=== PATIENT | male | born 1995 | race Asian ===

== ENCOUNTER 2021-01-26 21:07 | Inpatient (IN) | payer BC, OTHER ==
[~2021-01-26] VITALS: Ht 175.3 cm; Wt 76.3 kg
[2021-01-26 23:17] LABS: HEMOGLOBIN 13.4 gm/dl (14.0-17.5); RED BLOOD COUNT 4.88 M/UL (4.20-5.50); WHITE BLOOD COUNT 5.4 K/UL (4.5-11.0)
[2021-01-26 23:47] LABS: BUN/CREATININE RATIO 23 (0-10)
[2021-01-28 05:13] LABS: BUN/CREATININE RATIO 35 (0-10)
[2021-01-28 07:10] LABS: HIV SCREEN 4TH GENERATION WRFX Non Reactive (Non Reactive)
[2021-01-28 09:10] LABS: HBSAG SCREEN Negative (Negative); HEP A AB, IGM Negative (Negative); HEP B CORE AB, IGM Negative (Negative); HEP C VIRUS AB <0.1 (0.0-0.9); RPR Non Reactive (Non Reactive)
[2021-01-28 10:10] LABS: RHEUMATOID ARTHRITIS FACTOR <10.0 IU/mL (0.0-13.9)
[2021-01-28 10:10] LABS: COMPLEMENT C3, SERUM 59 mg/dL (82-167); COMPLEMENT C4, SERUM 11 mg/dL (12-38)
[2021-01-28 11:10] LABS: CREATININE, URINE 839.7 mg/dL (Not Estab.)
[2021-01-28 14:35] LABS: URINE TOTAL PROTEIN 1620 mg/dl
[2021-01-29 08:04] LABS: HEMOGLOBIN 13.1 gm/dl (14.0-17.5); RED BLOOD COUNT 4.95 M/UL (4.20-5.50); WHITE BLOOD COUNT 4.3 K/UL (4.5-11.0)
[2021-01-29 08:28] LABS: BUN/CREATININE RATIO 34 (0-10)
[2021-01-29] MEDS ORDERED: FUROSEMIDE40 MG PO (11:17)
[2021-01-29] MEDS ORDERED: LISINOPRIL5 MG PO (11:17)
[2021-01-29 16:10] LABS: A/G RATIO 0.3 (0.7-1.7); ALBUMIN 0.7 g/dL (2.9-4.4); ALPHA-1-GLOBULIN 0.2 g/dL (0.0-0.4); ALPHA-2-GLOBULIN 1.5 g/dL (0.4-1.0); BETA GLOBULIN 0.6 g/dL (0.7-1.3); GAMMA GLOBULIN 0.3 g/dL (0.4-1.8); GLOBULIN, TOTAL 2.6 g/dL (2.2-3.9); IMMUNOGLOBULIN A, QN, SERUM 389 mg/dL (90-386); IMMUNOGLOBULIN G, QN, SERUM 342 mg/dL (603-1613); IMMUNOGLOBULIN M, QN, SERUM 38 mg/dL (20-172); M-SPIKE Not Observed g/dL (Not Observed); PROTEIN, TOTAL, SERUM 3.3 g/dL (6.0-8.5)
[2021-01-30 04:11] LABS: LDL CHOL. (DIRECT) 246 mg/dL (0-99)
[2021-01-30 07:11] LABS: ANTISTREPTOLYSIN O AB <20.0 IU/mL (0.0-200.0)
[2021-01-30 16:11] LABS: ANTIMYELOPEROXIDASE (MPO) ABS <9.0 U/mL (0.0-9.0); ANTIPROTEINASE 3 (PR-3) ABS <3.5 U/mL (0.0-3.5); ATYPICAL PANCA <1:20 titer (Neg:<1:20); CYTOPLASMIC (C-ANCA) <1:20 titer (Neg:<1:20); PERINUCLEAR (P-ANCA) <1:20 titer (Neg:<1:20)
[2021-01-31 11:15] LABS: ANTIGLOMERULAR BM AB 2 units (0-20)
[2021-01-31 16:14] LABS: M-SPIKE, % Not Observed % (Not Observed); PROTEIN,TOTAL,URINE 1763.3 mg/dL (Not Estab.)
[2021-02-01 13:14] LABS: DSDNA CRITHIDIA LUCILIAE IFA Positive (Negative)
== END 2021-01-29 15:46 | disposition home or self-care (01) | DRG 699 ==
LOC: ER1 21:07 → M/S 01-27 02:19 → CDU 01-27 02:19 → M/S 01-27 03:38
PROVIDERS: Family Medicine; Internal Medicine; Internal Medicine Nephrology; ADMIT Internal Medicine
PROC: B24BZZ4 Ultrasonography of Heart with Aorta, Transesophageal (ICD-10-PCS; 2021-01-27)
PROC: 0TB03ZX Excision of Right Kidney, Percutaneous Approach, Diagnostic (ICD-10-PCS; principal; 2021-01-29)
DX: N04.9 Nephrotic syndrome with unspecified morphologic changes (principal); R18.8 Other ascites; J90 Pleural effusion, not elsewhere classified; Z20.822 Contact with and (suspected) exposure to COVID-19; E78.00 Pure hypercholesterolemia, unspecified; N17.9 Acute kidney failure, unspecified; E88.09 Other disorders of plasma-protein metabolism, not elsewhere classified; N12 Tubulo-interstitial nephritis, not specified as acute or chronic
CPT/HCPCS: ECHO; 36415; 71046; 77012; 80048; 80053; 80061; 80074; 80307; 81001; 82043; 82550; 82553; 82570; 82784; 83036; 83520; 83690; 83698; 83874; 83880; 84155; 84156; 84165; 84166; 84439; 84443; 84484; 85025; 85379; 85610; 86038; 86060; 86160; 86162; 86255; 86256; 86334; 86335; 86431; 86592; 87040; 87086; 87389; 88305; 88313; 88346; 88348; 93005; 93306; 96374; 99285; J0696; J1644; J1650; J1940; P9047; U0002

== ENCOUNTER → 2021-02-01 | Outpatient (CLI) | payer BC ==
[~2021-02-01] MED LIST: FUROSEMIDE40 MG PO; LISINOPRIL5 MG PO
[2021-02-01 20:32] LABS: BUN/CREATININE RATIO 42 (0-10)
== END ==
LOC: LAB 17:38
PROVIDERS: Internal Medicine Nephrology
DX: M32.14 Glomerular disease in systemic lupus erythematosus (principal)
CPT/HCPCS: 36415; 80053

== ENCOUNTER → 2021-02-08 | Outpatient (CLI) | payer BC, OTHER ==
[2021-02-08 17:05] LABS: BUN/CREATININE RATIO 39 (0-10)
== END ==
LOC: LAB 15:21
PROVIDERS: Internal Medicine Nephrology
DX: R80.9 Proteinuria, unspecified (principal)
CPT/HCPCS: 80069; 82570; 84156

== ENCOUNTER → 2021-03-03 | Outpatient (CLI) | payer BC, OTHER ==
[2021-03-03 17:38] LABS: BUN/CREATININE RATIO 34 (0-10)
[2021-03-06 14:12] LABS: ANTI-DSDNA ANTIBODIES 4 IU/mL (0-9)
[2021-03-06 15:12] LABS: COMPLEMENT C3, SERUM 120 mg/dL (82-167); COMPLEMENT C4, SERUM 12 mg/dL (12-38)
== END ==
LOC: LAB 16:45
PROVIDERS: Internal Medicine Nephrology
DX: M32.14 Glomerular disease in systemic lupus erythematosus (principal)
CPT/HCPCS: 80053; 81001; 82570; 84156; 86038; 86160; 86225

== ENCOUNTER → 2021-03-28 | Outpatient (CLI) | payer BC, OTHER ==
[2021-03-28 12:25] LABS: HEMOGLOBIN 15.3 gm/dl (14.0-17.5); RED BLOOD COUNT 5.08 M/UL (4.20-5.50); WHITE BLOOD COUNT 14.9 K/UL (4.5-11.0)
[2021-03-28 12:51] LABS: BUN/CREATININE RATIO 29 (0-10)
[2021-03-29 08:14] LABS: COMPLEMENT C3, SERUM 137 mg/dL (82-167); COMPLEMENT C4, SERUM 12 mg/dL (12-38)
[2021-03-29 10:14] LABS: CREATININE, URINE 158.7 mg/dL (Not Estab.)
[2021-03-29 15:14] LABS: ANTI-DSDNA ANTIBODIES 5 IU/mL (0-9)
== END ==
LOC: LAB 11:03
PROVIDERS: Internal Medicine Nephrology
DX: M32.14 Glomerular disease in systemic lupus erythematosus (principal)
CPT/HCPCS: 36415; 80053; 82043; 82570; 84156; 85027; 86038; 86160; 86225

== ENCOUNTER → 2021-04-11 | Outpatient (CLI) | payer BC, OTHER | LOC: LAB 15:21 | DX: M32.14 Glomerular disease in systemic lupus erythematosus (principal) | CPT/HCPCS: 81001; 82570; 84156 ==

== ENCOUNTER → 2021-04-13 | Outpatient (CLI) | payer BC, OTHER ==
[2021-04-13 18:40] LABS: URINE TOTAL PROTEIN 60 mg/dl
== END ==
LOC: LAB 18:06
PROVIDERS: Internal Medicine Nephrology
DX: M32.14 Glomerular disease in systemic lupus erythematosus (principal)
CPT/HCPCS: 84156

== ENCOUNTER → 2021-05-04 | Outpatient (CLI) | payer BC, OTHER ==
[2021-05-04 15:33] LABS: HEMOGLOBIN 14.8 gm/dl (14.0-17.5); RED BLOOD COUNT 4.82 M/UL (4.20-5.50); WHITE BLOOD COUNT 11.7 K/UL (4.5-11.0)
[2021-05-04 16:14] LABS: BUN/CREATININE RATIO 23 (0-10)
[2021-05-05 08:13] LABS: COMPLEMENT C3, SERUM 123 mg/dL (82-167); COMPLEMENT C4, SERUM 12 mg/dL (12-38)
[2021-05-05 10:14] LABS: CREATININE, URINE 69.3 mg/dL (Not Estab.)
[2021-05-05 15:09] LABS: ANTI-DSDNA ANTIBODIES 4 IU/mL (0-9)
== END ==
LOC: LAB 14:05
PROVIDERS: Internal Medicine Nephrology
DX: M32.14 Glomerular disease in systemic lupus erythematosus (principal)
CPT/HCPCS: 36415; 80053; 81001; 82043; 82570; 84156; 85025; 85027; 86038; 86160; 86225

== ENCOUNTER → 2021-06-25 | Outpatient (CLI) | payer BC, OTHER | LOC: KOH-I 10:30 | DX: M79.672 Pain in left foot (principal) | CPT/HCPCS: 73630 ==

== ENCOUNTER → 2021-07-19 | Outpatient (CLI) | payer BC, OTHER ==
[2021-07-19 23:40] LABS: HEMOGLOBIN 15.5 gm/dl (14.0-17.5); RED BLOOD COUNT 5.1 M/UL (4.20-5.50); WHITE BLOOD COUNT 9.5 K/UL (4.5-11.0)
[2021-07-19 23:57] LABS: BUN/CREATININE RATIO 16 (0-10)
[2021-07-21 10:13] LABS: CREATININE, URINE 202.5 mg/dL (Not Estab.)
== END ==
LOC: LAB 22:27
PROVIDERS: Internal Medicine Nephrology
DX: E87.6 Hypokalemia (principal); M32.14 Glomerular disease in systemic lupus erythematosus
CPT/HCPCS: 36415; 80053; 81001; 82043; 82570; 83735; 84156; 85027

== ENCOUNTER 2022-01-24 21:44 | Emergency (ER) | payer OTHER ==
[2022-01-24 23:08] LABS: HEMOGLOBIN 14.2 gm/dl (14.0-17.5); RED BLOOD COUNT 4.99 M/UL (4.20-5.50); WHITE BLOOD COUNT 11.1 K/UL (4.5-11.0)
[2022-01-24 23:21] LABS: BUN/CREATININE RATIO 15 (0-10)
[2022-01-25] MEDS ORDERED: IBUPROFEN600 MG PO (03:31)
[2022-01-25] MEDS ORDERED: CLINDAMYCIN HC300 MG PO (03:31)
[2022-01-25] MEDS ORDERED: BACTROBAN OINT22 GM EXT (03:31)
== END 2022-01-25 04:02 | disposition home or self-care (01) ==
LOC: ER1 21:44
PROVIDERS: Physician Assistant Medical
DX: L02.31 Cutaneous abscess of buttock (principal); L03.317 Cellulitis of buttock
CPT/HCPCS: 72193; 80053; 83605; 85025; 87040; 96365; 99284; Q9967

== ENCOUNTER → 2022-03-28 | Outpatient (CLI) | payer OTHER ==
[~2022-03-28] MED LIST changes: +BACTROBAN OINT22 GM EXT; +CLINDAMYCIN HC300 MG PO; +IBUPROFEN600 MG PO
[2022-03-28 16:29] LABS: HEMOGLOBIN 15.2 gm/dl (14.0-17.5); RED BLOOD COUNT 5.32 M/UL (4.20-5.50); WHITE BLOOD COUNT 5.9 K/UL (4.5-11.0)
[2022-03-28 16:52] LABS: BUN/CREATININE RATIO 16 (0-10)
[2022-03-30 07:11] LABS: CREATININE, URINE 54.8 mg/dL (Not Estab.)
[2022-03-30 08:13] LABS: COMPLEMENT C3, SERUM 135 mg/dL (82-167); COMPLEMENT C4, SERUM 16 mg/dL (12-38)
== END ==
LOC: LAB 15:57
PROVIDERS: Internal Medicine Nephrology
DX: M32.14 Glomerular disease in systemic lupus erythematosus (principal)
CPT/HCPCS: 80053; 81001; 82043; 82570; 85025; 85027; 86140; 86160

== ENCOUNTER → 2022-06-25 | Outpatient (CLI) | payer OTHER ==
[2022-06-25 17:32] LABS: HEMOGLOBIN 14.9 gm/dl (14.0-17.5); RED BLOOD COUNT 5.26 M/UL (4.20-5.50); WHITE BLOOD COUNT 6.2 K/UL (4.5-11.0)
[2022-06-25 18:03] LABS: BUN/CREATININE RATIO 20 (0-10)
[2022-06-27 09:15] LABS: COMPLEMENT C3, SERUM 126 mg/dL (82-167); COMPLEMENT C4, SERUM 15 mg/dL (12-38)
[2022-06-27 10:15] LABS: CREATININE, URINE 109.6 mg/dL (Not Estab.)
== END ==
LOC: LAB 16:01
PROVIDERS: Internal Medicine Nephrology
DX: M32.14 Glomerular disease in systemic lupus erythematosus (principal)
CPT/HCPCS: 80053; 81001; 82043; 82570; 85025; 85027; 86140; 86160